=== PATIENT | male | born 1945 | race Caucasian/White ===

== ENCOUNTER 2019-07-04 09:51 | Inpatient (IN) | payer OTHER ==
[2019-07-01 14:39] LABS: BASOPHILS # (AUTO) 0.1 X10'3 (0-0.2); BASOPHILS % (AUTO) 0.9 % (0-1); EOSINOPHILS # (AUTO) 0.4 X10'3 (0-0.9); EOSINOPHILS % (AUTO) 3.7 % (0-6); LYMPHOCYTES # (AUTO) 3.3 X10'3 (1.1-4.8); LYMPHOCYTES % (AUTO) 29.8 % (21-51); MEAN CORPUSCULAR HGB CONC 33.1 g/dL (33.0-36.5); MEAN CORPUSCULAR VOLUME 93.7 FL (78-98); MEAN PLATELET VOLUME 8.9 FL (7.4-10.4); MONOCYTES % (AUTO) 8.9 % (2-12); NEUTROPHILS # (AUTO) 6.2 X10'3 (1.8-7.7); NEUTROPHILS % (AUTO) 56.7 % (42-75); PRE OP HEMATOCRIT 44.4 % (42.0-52.0); PRE OP HEMOGLOBIN 14.7 g/dL (14.0-17.9); PRE OP PLATELET COUNT 357 X10'3 (140-440); RED BLOOD COUNT 4.75 X10'6 (4.70-6.10)
[2019-07-01 14:48] LABS: PRE OP PROTIME 10.3 SECONDS (9.0-12.0)
[2019-07-01 14:49] LABS: ALBUMIN 3.8 G/DL (3.4-5.0); ALKALINE PHOSPHATASE 66 IU/L (46-116); BLOOD UREA NITROGEN 48 MG/DL (7-18); BUN/CREATININE RATIO 33.6 (5.4-32.0); CALCIUM 9.2 MG/DL (8.5-10.1); CHLORIDE 108 MMOL/L (99-107); CREATININE 1.43 MG/DL (0.60-1.10); PRE OP ALT 26 U/L (30-65); PRE OP ANION GAP 8 (8-16); PRE OP AST 15 U/L (10-37); PRE OP BILIRUB, TOTAL 0.3 MG/DL (0.0-1.0); PRE OP GLUCOSE 127 MG/DL (70-104); PRE OP POTASSIUM 4.1 MMOL/L (3.4-5.1); PRE OP SODIUM 142 MMOL/L (135-145); TOTAL CARBON DIOXIDE 25.9 MMOL/L (24-32); TOTAL PROTEIN 7.7 G/DL (6.4-8.2); eGFR 48 ML/MIN
[2019-07-01 14:56] LABS: CLARITY,URINE CLEAR (Clear); COLOR,URINE YELLOW (Yellow); GLUCOSE, URINE NEGATIVE (Neg); KETONES,URINE NEGATIVE (Neg); LEUKOCYTE ESTERASE ,URINE NEGATIVE (Neg); NITRITES, URINE NEGATIVE (Neg); OCCULT BLOOD,URINE NEGATIVE (Neg); PH,URINE 5.5 (4.8-8.0); PROTEIN,URINE NEGATIVE (Neg); UA COLLECTION TYPE NON-SPECIFIED; UROBILINOGEN,URINE 0.2 E.U/dL (0.2-1.0)
[2019-07-04] VITALS (16 sets, daily range): BP systolic 123–172; BP diastolic 50–92
[~2019-07-04] VITALS: Ht 182.9 cm; Wt 108.5 kg
[~2019-07-04 09:51] MED LIST: ATOR40TA PO; CHOL10002 PO; DICL100G15 TOP; GABA-532 PO; HYDR-4383 PO; LOSA1TAB39 PO; OMEP40CA13 PO; SILD100T PO; famotidine 20mg tablet PO ONE; ringers solution, lacted 1,000 ML IV SCH
[2019-07-04] MEDS ORDERED: vancomycin inj 1,500 MG in normal saline 300ml IV soln IV ONE (11:15)
[2019-07-04] MEDS ORDERED: cefazolin/dext.iso 2gm/50ml 50 ML IV ONE (11:15)
[2019-07-04] MEDS ORDERED: tranexamic acid inj. 1,100 MG in normal saline 100ml IV soln 100 ML IV ONE ×5 (11:15→20:30)
[2019-07-04] MEDS ORDERED: ringers solution, lacted 1,000 ML IV SCH (14:07)
[2019-07-04] MEDS ORDERED: hydrALAZINE 20mg/ml inj. IV PRN (14:10)
[2019-07-04] MEDS ORDERED: morphine 4 MG/ML inj SYRINge IV PRN ×2 (14:10)
[2019-07-04] MEDS ORDERED: ondansetron/PF 4mg/2ml inj IV PRN ×3 (14:10→17:35)
[2019-07-04] MEDS ORDERED: fentaNYL/PF 50MCG/1 ML 2ML syringe IV PRN ×2 (14:10)
[2019-07-04] MEDS ORDERED: labetalol 20mg/4ml (5mg/ml) syringe IV PRN (14:10)
[2019-07-04] MEDS ORDERED: tetracaine 1% (10mg/ml) pres. free inj. ONE (14:10)
[2019-07-04] MEDS ORDERED: morphine /PF 1mg/ml 10ml inj. ONE (14:15)
[2019-07-04] MEDS ORDERED: MIDAZolam 1mg/ml 10ml vial ONE (14:15)
[2019-07-04] MEDS ORDERED: LIDOcaine 2% (20mg/ml) 5ml vial ONE (14:41)
[2019-07-04] MEDS ORDERED: propofol inj 20 ML IV ONE ×2 (14:41→15:40)
[2019-07-04] MEDS ORDERED: ROPIVAcaine 0.2%/PF PAIN PUMP 400 ML IJ SCH (15:05)
[2019-07-04] MEDS ORDERED: ROPIVAcaine 0.5% (5mg/ml) 30ml vial ONE ×2 (15:09→17:01)
[2019-07-04] MEDS ORDERED: ketorolac trometh. 30mg/ml inj. ONE (15:09)
[2019-07-04] MEDS ORDERED: diphenhydrAMINE 50 mg/ml inj IV PRN (15:10)
[2019-07-04] MEDS ORDERED: dexamethasone sod phosphate 4mg/ml inj. ONE (17:00)
[2019-07-04] MEDS ORDERED: bisacodyl 10mg suppository rectal RC PRN (17:35)
[2019-07-04] MEDS ORDERED: diphenhydrAMINE 25mg capsule PO PRN ×2 (17:35)
[2019-07-04] MEDS ORDERED: non-formulary drug (Sildenafil Citrate* (Viagra*) 1 TAB) PO SCH (17:35)
[2019-07-04] MEDS ORDERED: HYDROmorphone inj. 0.5 MG/0.5 ML DISP.SYRIN IV PRN (17:35)
[2019-07-04] MEDS ORDERED: oxyCODONE IR 5mg (immed. release) tablet PO PRN (17:35)
[2019-07-04] MEDS ORDERED: acetaminophen 325mg tablet PO PRN (17:35)
[2019-07-04] MEDS ORDERED: magnesium hydroxide 30ml (MOM) UD suspension PO PRN (17:35)
--- NOTE | 2019-07-04 17:55 | NUR ---
ADMITTED TO PACU FROM OR ACCOMPANIED BY ANESTHESIA. INTIAL PHYSICAL ASSESSMENT DONE AND RECORDED. AWAKE AND RESPONSE ON ARRIVE YO PACU, REPORT RECEIVED FROM ANESTHESIA.
--- NOTE | 2019-07-04 19:00 | NUR ---
PACU DISCHARGE CRITERIA MET, REPORT GIVEN TO FLOOR. DENIES PAIN OR DISCOMFORT, TRANSFERRED TO ROOM IN STABLE GOOD CONDITION.
--- NOTE | 2019-07-04 19:00 | NUR ---
PT CAME UP FROM OR. HIS DAUGHTER AT THE BEDSIDE. PT HAS BEEN ORIENTED TO THE ROOM. VSS. RECEIVED REPORT FROM ANNELIESE HUDSON PRIOR TO PT'S ARRIVAL.
[2019-07-04] MEDS ORDERED: vancomycin/NS 1 GM ADD-VANTAGE 250 ML IV SCH (20:00)
[2019-07-04] MEDS: VOLTAREN TOP SCH (21:00)
[2019-07-04] MEDS: acetaminophen 325mg tablet PO SCH (21:40)
[2019-07-04] MEDS: gabapentin 300mg capsule PO SCH (21:41)
[2019-07-04] MEDS: oxyCODONE IR 5mg (immed. release) tablet PO PRN (21:41)
[2019-07-04] MEDS: sennosides 8.6mg tablet PO SCH (21:41)
[2019-07-04] MEDS: potassium cl 20mEq in 1/2 NS 1,000 ML IV SCH (23:44)
[2019-07-04] MEDS: ceFAZolin 1GM/D5W- ADD-VANTAGE 50 ML IV SCH (23:44)
[2019-07-05] MEDS: potassium cl 20mEq in 1/2 NS 1,000 ML IV SCH ×3 (01:33→16:04)
[2019-07-05] MEDS: acetaminophen 325mg tablet PO SCH ×4 (02:00→20:38)
[2019-07-05 02:05] VITALS: BP 128/58
[2019-07-05] MEDS: oxyCODONE IR 5mg (immed. release) tablet PO PRN ×4 (05:12→23:52)
[2019-07-05 05:18] LABS: BASOPHILS # (AUTO) 0.1 X10'3 (0-0.2); BASOPHILS % (AUTO) 0.6 % (0-1); EOSINOPHILS % (AUTO) 0.1 % (0-6); HEMATOCRIT 38.3 % (42.0-52.0); HEMOGLOBIN 12.5 g/dl (14.0-17.9); LYMPHOCYTES # (AUTO) 2.2 X10'3 (1.1-4.8); LYMPHOCYTES % (AUTO) 15.3 % (21-51); MEAN CORPUSCULAR HEMOGLOBIN 30.6 PG (27.0-31.0); MEAN CORPUSCULAR HGB CONC 32.6 g/dL (33.0-36.5); MEAN CORPUSCULAR VOLUME 93.8 FL (78-98); MEAN PLATELET VOLUME 9.4 FL (7.4-10.4); MONOCYTES # (AUTO) 1.5 X10'3 (0-0.9); MONOCYTES % (AUTO) 10.2 % (2-12); NEUTROPHILS # (AUTO) 10.8 X10'3 (1.8-7.7); NEUTROPHILS % (AUTO) 73.8 % (42-75); PLATELET COUNT 308 X10'3 (140-440); RED BLOOD COUNT 4.08 X10'6 (4.70-6.10); RED CELL DISTRIBUTION WIDTH 13.7 % (11.5-14.5); WHITE BLOOD COUNT 14.6 X10'3 (4.5-11.0)
[2019-07-05 05:30] LABS: ANION GAP 8 (8-16); CHLORIDE 109 MMOL/L (99-107); POTASSIUM 4.6 MMOL/L (3.5-5.1); SODIUM 141 MMOL/L (135-145)
[2019-07-05 06:00] VITALS: BP 126/62
--- NOTE | 2019-07-05 06:21 | NUR ---
Problems reprioritized. Patient report given, questions answered & plan of care reviewed with ANNELIESE HERRERA.
--- NOTE | 2019-07-05 07:00 | NUR ---
Report received from ANNELIESE Garcia
[2019-07-05] MEDS: VOLTAREN TOP SCH ×4 (08:00→21:00)
[2019-07-05] MEDS: HYDROchlorothiazide 25mg tablet PO SCH (09:06)
[2019-07-05] MEDS: losartan 50mg tablet PO SCH (09:06)
[2019-07-05] MEDS: gabapentin 300mg capsule PO SCH ×3 (09:06→20:39)
[2019-07-05] MEDS: atorvastatin 20mg tablet PO SCH (09:06)
[2019-07-05] MEDS: pantoprazole 40mg Tablet.DR PO SCH (09:07)
[2019-07-05] MEDS: vitamin D (cholecalciferol) 1,000 unit tablet PO SCH (09:08)
[2019-07-05] MEDS: aspirin 325mg tablet PO SCH (09:08)
[2019-07-05] MEDS: ceFAZolin 1GM/D5W- ADD-VANTAGE 50 ML IV SCH (09:09)
[2019-07-05 11:39] VITALS: BP 157/77
--- NOTE | 2019-07-05 13:56 | NUR ---
Joint replacement consult: Pt seen by TREVOR for written/verbal high protein ed. RD reviewed high protein needs for wound healing, immune strength, high protein foods, and protein supplementation options. RD contact information provided in case of further questions. Pt agrees to cottage cheese w/ fruit at dinner and double meats TIDWM; dietary notified. Addendum: 07/05/19 at [address] Amended: Links added.
[2019-07-05] MEDS: HYDROmorphone 1 mg/ml syringe IV PRN ×2 (15:58→20:42)
[2019-07-05 18:00] VITALS: BP 120/67
--- NOTE | 2019-07-05 18:20 | NUR ---
Patient in room ORTH[facility] 4024. I have received report from mauro Pereira and had the opportunity to ask questions and assume patient care.
[2019-07-05] MEDS: sennosides 8.6mg tablet PO SCH (20:38)
[2019-07-05 21:52] VITALS: BP 125/51
[2019-07-06] MEDS: potassium cl 20mEq in 1/2 NS 1,000 ML IV SCH ×2 (01:19→09:33)
[2019-07-06] MEDS: acetaminophen 325mg tablet PO SCH ×3 (02:17→14:00)
[2019-07-06] MEDS: oxyCODONE IR 5mg (immed. release) tablet PO PRN ×4 (05:11→21:01)
[2019-07-06 06:00] VITALS: BP 142/61
[2019-07-06 06:03] LABS: BASOPHILS # (AUTO) 0.1 X10'3 (0-0.2); BASOPHILS % (AUTO) 0.9 % (0-1); EOSINOPHILS # (AUTO) 0.2 X10'3 (0-0.9); EOSINOPHILS % (AUTO) 1.7 % (0-6); HEMATOCRIT 37.7 % (42.0-52.0); HEMOGLOBIN 12.5 g/dl (14.0-17.9); LYMPHOCYTES # (AUTO) 2.5 X10'3 (1.1-4.8); LYMPHOCYTES % (AUTO) 19.3 % (21-51); MEAN CORPUSCULAR HGB CONC 33.2 g/dL (33.0-36.5); MEAN CORPUSCULAR VOLUME 93.4 FL (78-98); MEAN PLATELET VOLUME 9.7 FL (7.4-10.4); MONOCYTES # (AUTO) 2.3 X10'3 (0-0.9); MONOCYTES % (AUTO) 17.6 % (2-12); NEUTROPHILS # (AUTO) 7.8 X10'3 (1.8-7.7); NEUTROPHILS % (AUTO) 60.5 % (42-75); PLATELET COUNT 268 X10'3 (140-440); RED BLOOD COUNT 4.04 X10'6 (4.70-6.10); RED CELL DISTRIBUTION WIDTH 13.9 % (11.5-14.5); WHITE BLOOD COUNT 12.9 X10'3 (4.5-11.0)
--- NOTE | 2019-07-06 06:17 | NUR ---
Problems reprioritized. Patient report given, questions answered & plan of care reviewed with ANNELIESE MAHMOOD.
[2019-07-06] MEDS ORDERED: WALKERFR (06:52)
--- NOTE | 2019-07-06 06:56 | NUR ---
Patient in room ORTH[facility] 4024. I have received report from Radha COY and had the opportunity to ask questions and assume patient care.
[2019-07-06 07:38] LABS: PLATELET ESTIMATE NORMAL; SCHISTOCYTES FEW; TOTAL CELLS COUNTED 100
[2019-07-06 07:39] LABS: BURR CELLS FEW
[2019-07-06] MEDS: VOLTAREN TOP SCH ×4 (08:00→21:00)
[2019-07-06] MEDS: aspirin 325mg tablet PO SCH (08:59)
[2019-07-06] MEDS: pantoprazole 40mg Tablet.DR PO SCH (08:59)
[2019-07-06] MEDS: atorvastatin 20mg tablet PO SCH (08:59)
[2019-07-06] MEDS: vitamin D (cholecalciferol) 1,000 unit tablet PO SCH (08:59)
[2019-07-06] MEDS: gabapentin 300mg capsule PO SCH ×3 (09:00→21:01)
[2019-07-06] MEDS: HYDROchlorothiazide 25mg tablet PO SCH (09:00)
[2019-07-06] MEDS: losartan 50mg tablet PO SCH (09:00)
[2019-07-06 10:00] VITALS: BP 132/52
[2019-07-06] MEDS ORDERED: acetaminophen 325mg tablet PO PRN (17:35)
--- NOTE | 2019-07-06 17:40 | NUR ---
I AGREE WITH MY PRECEPTEE TIMOTEO COY'S CHARTING.
[2019-07-06 18:00] VITALS: BP 125/70
--- NOTE | 2019-07-06 18:23 | NUR ---
Problems reprioritized. Patient report given, questions answered & plan of care reviewed with ANNELIESE MAHMOOD.
[2019-07-06] MEDS: sennosides 8.6mg tablet PO SCH (21:00)
[2019-07-06 22:00] VITALS: BP 163/63
[2019-07-07] MEDS: oxyCODONE IR 5mg (immed. release) tablet PO PRN ×6 (01:01→21:17)
[2019-07-07 06:00] LABS: BASOPHILS # (AUTO) 0.1 X10'3 (0-0.2); BASOPHILS % (AUTO) 0.9 % (0-1); EOSINOPHILS # (AUTO) 0.5 X10'3 (0-0.9); EOSINOPHILS % (AUTO) 3.3 % (0-6); HEMATOCRIT 37.3 % (42.0-52.0); HEMOGLOBIN 12.4 g/dl (14.0-17.9); LYMPHOCYTES # (AUTO) 2.7 X10'3 (1.1-4.8); LYMPHOCYTES % (AUTO) 19.6 % (21-51); MEAN CORPUSCULAR HEMOGLOBIN 30.9 PG (27.0-31.0); MEAN CORPUSCULAR HGB CONC 33.3 g/dL (33.0-36.5); MEAN CORPUSCULAR VOLUME 92.9 FL (78-98); MONOCYTES # (AUTO) 2.5 X10'3 (0-0.9); MONOCYTES % (AUTO) 18.1 % (2-12); NEUTROPHILS # (AUTO) 8.1 X10'3 (1.8-7.7); NEUTROPHILS % (AUTO) 58.1 % (42-75); PLATELET COUNT 262 X10'3 (140-440); RED BLOOD COUNT 4.02 X10'6 (4.70-6.10); WHITE BLOOD COUNT 13.9 X10'3 (4.5-11.0)
--- NOTE | 2019-07-07 06:23 | NUR ---
Problems reprioritized. Patient report given, questions answered & plan of care reviewed with ANNELIESE MURPHY.
--- NOTE | 2019-07-07 06:28 | NUR ---
received report from mauro maloney
[2019-07-07 06:42] VITALS: BP 146/70
[2019-07-07] MEDS: VOLTAREN TOP SCH ×4 (07:42→21:00)
[2019-07-07] MEDS: gabapentin 300mg capsule PO SCH ×3 (08:21→20:09)
[2019-07-07] MEDS: losartan 50mg tablet PO SCH (08:21)
[2019-07-07] MEDS: HYDROchlorothiazide 25mg tablet PO SCH (08:21)
[2019-07-07] MEDS: pantoprazole 40mg Tablet.DR PO SCH (08:22)
[2019-07-07] MEDS: vitamin D (cholecalciferol) 1,000 unit tablet PO SCH (08:22)
[2019-07-07] MEDS: atorvastatin 20mg tablet PO SCH (08:22)
[2019-07-07] MEDS: aspirin 325mg tablet PO SCH (08:23)
[2019-07-07 09:00] LABS: TOTAL CELLS COUNTED 100
[2019-07-07 09:03] LABS: ACANTHOCYTES FEW
[2019-07-07 09:04] LABS: PLATELET ESTIMATE NORMAL
[2019-07-07] MEDS ORDERED: ASPI-1 PO (09:11)
[2019-07-07 10:00] VITALS: BP 143/71
[2019-07-07] MEDS ORDERED: ROPIVAcaine 0.2%/PF PAIN PUMP 550 ML IJ SCH (10:35)
--- NOTE | 2019-07-07 11:45 | NUR ---
Student documentation: I have reviewed all interventions, assessments performed and documented by Corinna Simeon. Student Medication Administration: For this medication-pass time frame, all medication were reviewed, dispensed, administered and documented per hospital policy by Corinna Simeon.
[2019-07-07 18:00] VITALS: BP 142/95
--- NOTE | 2019-07-07 18:26 | NUR ---
gave report to mauro gill
--- NOTE | 2019-07-07 19:00 | NUR ---
Patient in room ORTH[facility] 4024. I have received report from Jossie COY and had the opportunity to ask questions and assume patient care.
[2019-07-07] MEDS: sennosides 8.6mg tablet PO SCH (20:09)
[2019-07-07 22:00] VITALS: BP 123/63
[2019-07-08] MEDS: oxyCODONE IR 5mg (immed. release) tablet PO PRN ×3 (02:06→11:40)
[2019-07-08 06:00] VITALS: BP 138/68
--- NOTE | 2019-07-08 06:20 | NUR ---
Patient in room ORTHO 4024. I have received report from Donny Loaiza and had the opportunity to ask questions and assume patient care.
[2019-07-08] MEDS: VOLTAREN TOP SCH ×2 (08:00→13:00)
[2019-07-08] MEDS: atorvastatin 20mg tablet PO SCH (08:01)
[2019-07-08] MEDS: HYDROchlorothiazide 25mg tablet PO SCH (08:01)
[2019-07-08] MEDS: losartan 50mg tablet PO SCH (08:01)
[2019-07-08] MEDS: gabapentin 300mg capsule PO SCH ×2 (08:02→13:00)
[2019-07-08] MEDS: pantoprazole 40mg Tablet.DR PO SCH (08:02)
[2019-07-08] MEDS: vitamin D (cholecalciferol) 1,000 unit tablet PO SCH (08:02)
[2019-07-08] MEDS: aspirin 325mg tablet PO SCH (08:02)
[2019-07-08 10:00] VITALS: BP 134/58
--- NOTE | 2019-07-08 13:13 | NUR ---
Reviewed discharge instructions with pt. Pt verbalized understanding. Reviewed On Q pump and ALIZA instructions. Pt is alert, oriented and does not have c/o pain at this time. All of pt's belongings were returned to pt. Pt was wheeled downstairs to be driven home by a friend.
== END 2019-07-08 13:34 | disposition home health service (06) | DRG 470 ==
LOC: PAS IN 09:51 → EDSTATUS 13:15 → ORTHO 4S 19:31
PROVIDERS: ADMIT Orthopaedic Surgery; ATTEND Orthopaedic Surgery
PROC: 8E0YXBZ Computer Assisted Procedure of Lower Extremity (ICD-10-PCS; 2019-07-04)
PROC: 8E0YXCZ Robotic Assisted Procedure of Lower Extremity (ICD-10-PCS; 2019-07-04)
PROC: 3E0T3BZ Introduction of Anesthetic Agent into Peripheral Nerves and Plexi, Percutaneous Approach (ICD-10-PCS; 2019-07-04)
PROC: 0SRD069 Replacement of Left Knee Joint with Oxidized Zirconium on Polyethylene Synthetic Substitute, Cemented, Open Approach (ICD-10-PCS; principal; 2019-07-04 14:15)
PROC: 5A09357 Assistance with Respiratory Ventilation, Less than 24 Consecutive Hours, Continuous Positive Airway Pressure (ICD-10-PCS; 2019-07-05)
PROC: 5A09357 Assistance with Respiratory Ventilation, Less than 24 Consecutive Hours, Continuous Positive Airway Pressure (ICD-10-PCS; 2019-07-06)
DX: M17.12 Unilateral primary osteoarthritis, left knee (principal); D62 Acute posthemorrhagic anemia; G47.30 Sleep apnea, unspecified; E78.5 Hyperlipidemia, unspecified; Z96.612 Presence of left artificial shoulder joint; E78.00 Pure hypercholesterolemia, unspecified; M54.16 Radiculopathy, lumbar region; I10 Essential (primary) hypertension; K21.9 Gastro-esophageal reflux disease without esophagitis; M81.0 Age-related osteoporosis without current pathological fracture; F43.10 Post-traumatic stress disorder, unspecified; E66.9 Obesity, unspecified; Z68.32 Body mass index [BMI] 32.0-32.9, adult; Z90.81 Acquired absence of spleen; Z79.899 Other long term (current) drug therapy
CPT/HCPCS: 36415; 80051; 80053; 81003; 82948; 85025; 85610; 85730; 86885; 86900; 86901; 87081; 97110; 97116; 97161; 97530; A4215; A6454; A7000; C1713; C1758; C1776; G0378; J0690; J1100; J1170; J1885; J2001; J2250; J2270; J2405; J2704; J2795; J3370; J3480; J7120

== ENCOUNTER 2020-06-22 12:18 | Emergency (ER) | payer OTHER, MEDICARE ==
[~2020-06-22] VITALS: Ht 180.3 cm; Wt 107.0 kg
[~2020-06-22 12:18] MED LIST changes: +ASPI-1 PO; -DICL100G15 TOP; +HCTZ25T PO; +LIDO700A32 TOP; +MELO-100 PO; +MULT-1085 PO; +WALKERFR; +[UNRECOGNIZED DRUG - REMARK] PO; -famotidine 20mg tablet PO ONE; -ringers solution, lacted 1,000 ML IV SCH
[2020-06-22 14:26] VITALS: BP 193/87
== END 2020-06-22 14:29 | disposition home or self-care (01) ==
LOC: ER 12:18
DX: T81.89XD Other complications of procedures, not elsewhere classified, subsequent encounter (principal); E78.00 Pure hypercholesterolemia, unspecified; G47.30 Sleep apnea, unspecified; K21.9 Gastro-esophageal reflux disease without esophagitis; Z98.890 Other specified postprocedural states; Z79.82 Long term (current) use of aspirin; Z79.899 Other long term (current) drug therapy; Z96.651 Presence of right artificial knee joint
CPT/HCPCS: 99281